=== PATIENT | female | born 1940 | race Caucasian/White ===

== ENCOUNTER 2022-07-26 22:05 | Inpatient (IN) | payer OTHER ==
[~2022-07-26] VITALS: Ht 157.5 cm; Wt 54.4 kg
[2022-07-26 22:35] VITALS: BP_SYST 163
--- NOTE | 2022-07-26 22:40 | NUR ---
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 REPORTING RIGHT SIDED RIB PAIN AND THIGH PAIN. PT 02 SAT 86% ON RA, PUT ON 2L NC O2 SAT NOW 92%. MD MADE AWARE. PT A&O X4, SPEAKING IN FULL SENTENCES. SAFETY PRECAUTIONS IN PLACE AND CONNECTED TO MONITOR. MD AT BEDSIDE FOR MSE.
[2022-07-26] MEDS ORDERED: KETOROLAC TROMETHAMINE 60 MG/2 ML VIAL IM ONE (22:45)
[2022-07-26] MEDS ORDERED: MORPHINE 4 MG INJ. 4 MG/ML VIAL IM ONE (23:15)
[2022-07-27 00:57] LABS: BASOPHILS % (AUTO) 0.3 % (0.0-2.0); EOSINOPHILS % (AUTO) 0.2 % (0.0-4.0); HEMATOCRIT 39.7 % (36-48); HEMOGLOBIN 13.3 g/dL (12.0-16.0); LYMPHOCYTES # (AUTO) 0.8 K/uL (1.0-5.5); LYMPHOCYTES % (AUTO) 7.1 % (20.5-51.5); MEAN CORPUSCULAR HEMOGLOBIN 29 pg (27-31); MEAN CORPUSCULAR HGB CONC 33 % (32-36); MEAN CORPUSCULAR VOLUME 88 fL (79.0-98.0); MONOCYTES # (AUTO) 0.5 K/uL (0.0-1.0); MONOCYTES % (AUTO) 4.3 % (1.7-9.3); NEUTROPHILS % (AUTO) 88.1 % (40.0-70.0); PLATELET COUNT (AUTO) 197 K/uL (130-430); RED BLOOD CELL COUNT(AUTO) 4.52 MIL/uL (4.2-6.2); RED CELL DISTRIBUTION WIDTH 13.4 % (9.0-15.0); WHITE BLOOD COUNT (AUTO) 11.4 K/uL (4.8-10.8)
--- NOTE | 2022-07-27 01:05 | NUR ---
COVID SWAB GIVEN TO LAB
[2022-07-27 01:07] LABS: ANION GAP 7 (5-15); CALCIUM 9.1 mg/dL (8.4-11.0); CHLORIDE 102 mmol/L (98-107); CREATININE 0.71 mg/dL (0.55-1.30); GLUCOSE 137 mg/dL (70-99); UREA NITROGEN, BLOOD 24 mg/dL (8-21)
[2022-07-27 01:16] LABS: ALANINE AMINOTRANSFERASE 18 U/L (12-78); ALBUMIN 3.9 g/dL (3.4-4.8); ASPARTATE AMINOTRANSFERASE 21 U/L (10-37); TOTAL BILIRUBIN 0.4 mg/dL (0.0-1.0)
--- NOTE | 2022-07-27 01:42 | NUR ---
PT RESTING IN BED AWAKE. AT BEDSIDE. PT REPORT BEING COMFORTABLE AT THE MOMENT. VSS. SAFETY PRECAUTIONS IN PLACE AND CONNECTED TO MONITOR.
--- NOTE | 2022-07-27 03:30 | NUR ---
PT RESTING IN BED, AWAKE WITH AT BEDSIDE. VSS. SAFETY PRECAUTIONS IN PLACE AND CONNECTED TO MONITOR.
--- NOTE | 2022-07-27 05:09 | NUR ---
PT RESTING IN BED, EYES CLOSED. EVEN AND UNLABORED RESP NOTED, NAD. VSS AND CONNECTED TO MONITOR. SAFETY PRECAUTIONS IN PLACE.
--- NOTE | 2022-07-27 06:35 | NUR ---
PT EDUCATED ON NEED FOR IV UPON ADMISSION. PT REFUSED IV ACCESS.
--- NOTE | 2022-07-27 07:22 | NUR ---
Admit bed requested Patient will be admitted to care of Dr. MCLEOD. Admitted to MED SURG unit. Diagnosis FEMUR FRACTURE Inpatient (Yes or No) YES Observation (Yes or No) NO Orientation concerns or request close to nursing station (Yes or No) NO Covid Status NEGATIVE On vent or bipap NO Isolation requirements NO Needs a sitter NO From Home (Yes or if No enter name of facility) YES Requires Dialysis (Yes or No) NO Med Rec Completed (Yes of No) PENDING
--- NOTE | 2022-07-27 07:23 | NUR ---
REPORT GIVEN TO MARIAH RN TO ASSUME CARE.
[2022-07-27] MEDS ORDERED: AMLO2.5T50 PO (07:54)
[2022-07-27] MEDS ORDERED: METO50TA7 PO (07:54)
--- NOTE | 2022-07-27 09:13 | NUR ---
Medication reconciliation completed with information provided by PHARMACY. Any prior medication reconciliation on file was reviewed and corrected.
[2022-07-27] MEDS ORDERED: ONDANSETRON HCL 4 MG/2 ML VIAL IVP PRN (11:45)
[2022-07-27] MEDS ORDERED: HYDROcodone/ACETAMIN 10-325 MG TAB PO PRN (11:45)
[2022-07-27] MEDS ORDERED: HYDROcodone/ACETAMIN 5-325 MG TAB (NORCO/ VICODIN) PO PRN (11:45)
[2022-07-27] MEDS ORDERED: MORPHINE 2 MG/ML INJ. SYRINGE IVP PRN (11:45)
[2022-07-27] MEDS ORDERED: NALOXONE HCL 0.4 MG/ML AMP (NARCAN) IVP PRN ×3 (11:45)
[2022-07-27] MEDS ORDERED: LORazepam 2 MG/ML VIAL IVP PRN (11:45)
[2022-07-27] MEDS ORDERED: amLODIPine BESYLATE 5 MG TABLET PO ONE ×2 (12:00)
[2022-07-27] MEDS ORDERED: METOPROLOL SUCCINATE 50 MG TAB.SR.24H (TOPROL XL) PO ONE (12:00)
[2022-07-27] MEDS: METOPROLOL SUCCINATE 50 MG TAB.SR.24H (TOPROL XL) PO SCH (12:50)
--- NOTE | 2022-07-27 14:35 | NUR ---
PUREWICK IN PLACE WILL CONTINUE TO MONBITOR.
--- NOTE | 2022-07-27 18:05 | NUR ---
PT CAME TO MST UNIT FROM ER. REPORT RECEIVED FROM KISHA LEMUS. VITAL SIGN: 140/75, 103,96% AT 2L O2 VIA NC, 98.5. DENIES ANY PAIN OR DISCOMFORT. IV LINE REMAIN INTACT. FAMILY MEMBERS ARE AT BEDSIDE. WILL CONT TO MONITOR
--- NOTE | 2022-07-27 19:15 | NUR ---
CLOSING NOTE PT IN BED, RESTING. NO S/S ACUTE DISTRESS OR PAIN NOTED. NON-LABORED BREATHING WITH O2 2L VIA NC. BED IS LOCKED AND AT LOW POSITION. SAFETY PRECAUTION IN PLACED. ENDORSED CONSENT FOR PRE SURGERY AND CARE TO AUDIT DIRECTOR.
--- NOTE | 2022-07-27 19:45 | NUR ---
Patient will be admitted to care of DR HALEY. Admitted to MED SURGE unit. Will go to room 132A. Belongings list completed. Complete and up to date summary report printed. SBAR report to be given at bedside with opportunity for questions.
[2022-07-27 20:00] VITALS: BP_SYST 135
[2022-07-27] MEDS: NORMAL SALINE 5 ML DISP.SYRIN IVF SCH (22:00)
[2022-07-27] MEDS: ACETAMINOPHEN 325 MG TABLET PO PRN (22:16)
[2022-07-27 22:33] VITALS: BP_SYST 135
[2022-07-28] VITALS: BP_SYST 130
[2022-07-28] MEDS: D5/0.45 NS 1,000 ML IV SCH ×2 (05:02→14:45)
[2022-07-28] MEDS: NORMAL SALINE 5 ML DISP.SYRIN IVF SCH ×5 (05:03→14:00)
[2022-07-28 06:58] LABS: BASOPHILS % (AUTO) 0.4 % (0.0-2.0); EOSINOPHILS # (AUTO) 0.3 K/uL (0.0-0.4); EOSINOPHILS % (AUTO) 3.9 % (0.0-4.0); HEMOGLOBIN 13.7 g/dL (12.0-16.0); LYMPHOCYTES # (AUTO) 0.8 K/uL (1.0-5.5); LYMPHOCYTES % (AUTO) 8.9 % (20.5-51.5); MEAN CORPUSCULAR HEMOGLOBIN 30 pg (27-31); MEAN CORPUSCULAR HGB CONC 34 % (32-36); MEAN CORPUSCULAR VOLUME 88 fL (79.0-98.0); MONOCYTES # (AUTO) 0.7 K/uL (0.0-1.0); MONOCYTES % (AUTO) 7.6 % (1.7-9.3); NEUTROPHILS # (AUTO) 7.1 K/uL (1.8-7.7); NEUTROPHILS % (AUTO) 79.2 % (40.0-70.0); PLATELET COUNT (AUTO) 200 K/uL (130-430); RED BLOOD CELL COUNT(AUTO) 4.54 MIL/uL (4.2-6.2); RED CELL DISTRIBUTION WIDTH 13.2 % (9.0-15.0)
--- NOTE | 2022-07-28 07:20 | NUR ---
CONSULTATION: REASON FOR CONSULT: CARDIAC CLEARANCE CONSULTING PHYSICIAN: Tresa MCLEOD ORDERED BY: Philip MCLEOD SPOKE WITH GINO FROM ANSWERING SERVICE [phone]
[2022-07-28 07:23] LABS: ALANINE AMINOTRANSFERASE 16 U/L (12-78); ALBUMIN 3.7 g/dL (3.4-4.8); ANION GAP 9 (5-15); ASPARTATE AMINOTRANSFERASE 16 U/L (10-37); CALCIUM 8.7 mg/dL (8.4-11.0); CHLORIDE 101 mmol/L (98-107); GLUCOSE 112 mg/dL (70-99); PHOSPHORUS 3.7 mg/dL (2.7-4.5); UREA NITROGEN, BLOOD 20 mg/dL (8-21)
--- NOTE | 2022-07-28 07:30 | NUR ---
Patient resting in bed, unlabored breathing on 2L NC. Reporting mild pain at site of fracture, given Tylenol PRN. Patient has been NPO since midnight in preparation for procedure. at bedside. MRSA swab collected and sent to lab. Safety precautions in place.
--- NOTE | 2022-07-28 07:44 | NUR ---
Report received from night worker RN for continuity of care. Patient stable condition.
[2022-07-28 07:45] VITALS: BP_SYST 145
[2022-07-28] MEDS ORDERED: amLODIPine BESYLATE 5 MG TABLET PO ONE (09:00)
[2022-07-28 10:28] LABS: BILIRUBIN,URINE NEGATIVE (NEGATIVE); CLARITY/URINE CLEAR (CLEAR); COLOR,URINE YELLOW (YELLOW); GLUCOSE,URINE NEGATIVE (NEGATIVE); KETONES,URINE TRACE (NEGATIVE); LEUKOCYTE ESTERASE ,URINE NEGATIVE (NEGATIVE); NITRITE, URINE NEGATIVE (NEGATIVE); PROTEIN URINE 1+ (NEGATIVE); UROBILINOGEN,URINE 0.2 (0.2-1.0)
[2022-07-28] MEDS ORDERED: ONDANSETRON HCL 4 MG/2 ML VIAL IVP ONE (10:30)
[2022-07-28] MEDS ORDERED: fentaNYL CITRATE/PF 100 MCG/2 ML AMP IVP ONE (10:30)
[2022-07-28] MEDS ORDERED: NS IRRIG SOLN 1000 ML IR ONE (10:30)
[2022-07-28] MEDS ORDERED: ROCURONIUM BROMIDE 10 MG/ML (ZEMURON) IV ONE (10:30)
[2022-07-28] MEDS ORDERED: LR 1,000 ML IV.SOLN IV ONE (10:30)
[2022-07-28] MEDS ORDERED: TRANEXAMIC ACID 1,000 MG/10 ML VIAL IV ONE (10:30)
[2022-07-28] MEDS ORDERED: CEFAZOLIN 2 GM IVPB PREMIX 50 ML IV ONE (10:30)
[2022-07-28] MEDS ORDERED: KETOROLAC TROMETHAMINE 30 MG VIAL IVP ONE (10:30)
[2022-07-28] MEDS ORDERED: NS 100 ML BAG IV ONE (10:30)
[2022-07-28] MEDS ORDERED: DEXAMETHASONE SOD PHOSPHATE 4 MG/ML VIAL IVP ONE (10:30)
[2022-07-28] MEDS ORDERED: DESFLURANE 15 MIN GAS INH ONE (10:30)
[2022-07-28] MEDS ORDERED: SUGAMMADEX SODIUM 200 MG/2 ML VIAL IV ONE (10:30)
[2022-07-28] MEDS ORDERED: MIDAZOLAM HCL 5 MG/5 ML VIAL IVP ONE (10:30)
[2022-07-28] MEDS ORDERED: NS 1000 ML IV.SOLN IV ONE (10:30)
[2022-07-28] MEDS ORDERED: PROPOFOL 200MG/ 20ML VIAL (DIPRIVAN) IV ONE (10:30)
[2022-07-28 10:58] LABS: BLOOD, URINE TRACE (NEGATIVE)
[2022-07-28 11:12] LABS: BACTERIA,URINE RARE /HPF (None Seen); WBC,URINE 0-3 /HPF (0-3)
[2022-07-28] MEDS ORDERED: ceFAZolin SODIUM 2 GM in D5W 50 ML IV SCH (11:15)
[2022-07-28] MEDS ORDERED: ACETAMINOPHEN I.V. 1000 MG 100 ML IV ONE (11:29)
[2022-07-28] MEDS ORDERED: LABETALOL 100 MG/ 20ML VIAL IVP PRN (11:30)
[2022-07-28] MEDS ORDERED: MEPERIDINE HCL/PF 25 MG/ML DISP.SYRIN IVP PRN (11:30)
[2022-07-28] MEDS ORDERED: HYDROmorphone 1 MG/ML INJ. CARTRIDGE IVP PRN ×2 (11:30)
[2022-07-28] MEDS ORDERED: hydrALAZINE HCL 20 MG/ML VIAL IVP PRN (11:30)
[2022-07-28] MEDS ORDERED: LR 1,000 ML IV SCH (11:30)
[2022-07-28] MEDS ORDERED: METOCLOPRAMIDE HCL 10 MG/2 ML VIAL IVP PRN (11:30)
--- NOTE | 2022-07-28 13:39 | NUR ---
Patient in procedure.
--- NOTE | 2022-07-28 14:07 | NUR ---
pATIENT BACK FROM OR PROCEDURE. RESTING. VITALS STABLE. No distress noted.
[2022-07-28 14:08] VITALS: BP_SYST 142
--- NOTE | 2022-07-28 14:11 | NUR ---
Right hip dressing noted clean, dry, intact.
[2022-07-28] MEDS: ACETAMINOPHEN 325 MG TABLET PO PRN (16:51)
[2022-07-28 18:20] VITALS: BP_SYST 116
--- NOTE | 2022-07-28 19:40 | NUR ---
Report given to slot shift manager RN for continuity of care. Patient stable at the moment.
[2022-07-28 20:00] VITALS: BP_SYST 124
--- NOTE | 2022-07-28 20:15 | NUR ---
RECEIVED PT LYING IN BED, NO DISTRESS NOTED, DENIES PAIN. USING IS 500ML. DRSG TO RT HIP CDI. NEUROVASCULAR CHECK TO RLE INTACT. ABD PILLOW ON, RUBEN ON Addendum: 07/29/22 at 0554 by Araceli RegistryKISHA RN RLE WITH +WARMTH, +MOBILITY, +SENSATION, +PULSE, AND BRISK CAP REFILL. ICE PACK APPLIED.
[2022-07-29 00:26] VITALS: BP_SYST 113
[2022-07-29] MEDS: D5/0.45 NS 1,000 ML IV SCH (02:08)
[2022-07-29] MEDS ORDERED: CEFAZOLIN 2 GM IVPB PREMIX 50 ML IV ONE (02:27)
[2022-07-29 06:57] LABS: BASOPHILS # (AUTO) 0.1 K/uL (0.0-0.2); BASOPHILS % (AUTO) 0.4 % (0.0-2.0); HEMATOCRIT 37.1 % (36-48); HEMOGLOBIN 12.6 g/dL (12.0-16.0); LYMPHOCYTES # (AUTO) 0.3 K/uL (1.0-5.5); LYMPHOCYTES % (AUTO) 2.6 % (20.5-51.5); MEAN CORPUSCULAR HEMOGLOBIN 30 pg (27-31); MEAN CORPUSCULAR HGB CONC 34 % (32-36); MEAN CORPUSCULAR VOLUME 88 fL (79.0-98.0); MONOCYTES # (AUTO) 0.5 K/uL (0.0-1.0); MONOCYTES % (AUTO) 3.7 % (1.7-9.3); NEUTROPHILS # (AUTO) 12.4 K/uL (1.8-7.7); NEUTROPHILS % (AUTO) 93.3 % (40.0-70.0); PLATELET COUNT (AUTO) 196 K/uL (130-430); RED BLOOD CELL COUNT(AUTO) 4.23 MIL/uL (4.2-6.2); RED CELL DISTRIBUTION WIDTH 12.8 % (9.0-15.0); WHITE BLOOD COUNT (AUTO) 13.3 K/uL (4.8-10.8)
[2022-07-29 07:11] LABS: ANION GAP 8 (5-15); CALCIUM 9.1 mg/dL (8.4-11.0); CHLORIDE 103 mmol/L (98-107); CREATININE 0.76 mg/dL (0.55-1.30); GLUCOSE 176 mg/dL (70-99); UREA NITROGEN, BLOOD 17 mg/dL (8-21)
[2022-07-29 08:00] VITALS: BP_SYST 125
[2022-07-29] MEDS: METOPROLOL SUCCINATE 50 MG TAB.SR.24H (TOPROL XL) PO SCH (09:24)
[2022-07-29] MEDS: ASPIRIN 81 MG TAB.CHEW PO SCH ×2 (09:24→21:17)
--- NOTE | 2022-07-29 09:24 | NUR ---
PAIN PT NOW SITTING IN THE CHAIR AFTER AMBULATING, OFFERED HER PAIN PILL, PT REFUSED TO TAKE PAIN MEDS, DENIES PAIN, CONTINUE TO MONITOR.
--- NOTE | 2022-07-29 10:15 | NUR ---
NURSING SEEN PT TALKING TO HER WHILE SITTING, NO COMPLAINTS OF ANY PAIN.
--- NOTE | 2022-07-29 11:05 | NUR ---
EVALUATION COMPLETED. PATIENT WILL NEED: FWW, COMMODE, HOME HEALTH PT VS. SNF.
[2022-07-29 11:45] VITALS: BP_SYST 116
[2022-07-29 17:08] VITALS: BP_SYST 118
[2022-07-29 20:00] VITALS: BP_SYST 138
[2022-07-29] MEDS ORDERED: amLODIPine BESYLATE 5 MG TABLET PO ONE (20:00)
--- NOTE | 2022-07-29 20:30 | NUR ---
RECEIVED PT LYING IN BED, NO DISTRESS NOTED, DENIES PAIN. IV TO LT AC SITE CDI. O2 SAT 97% ON 2L O2. ENCOURAGED DEEP BREATHING. ABD PILLOW ON. +WARMTH, +SENSATION, +MOBILITY, BRISK CAP REFILL, AND PALPABLE PULSE. Addendum: 07/29/22 at 2238 by [facility], KISHA BEARD PT STATES SHE IS UNABLE TO USE INCENTIVE SPIROMETER DUE TO FLANK PAIN WHEN DOING IT. MEDICATED PT WITH TYLENOL TO MINIMIZE FLANK PAIN WHEN USING THE INCENTIVE SPIROMETER. O2 ON RA IS 88%, APPLIED O2 2 L O2 SAT 95%.
[2022-07-29] MEDS: DOCUSATE SODIUM 100 MG CAPSULE PO SCH (21:20)
[2022-07-29] MEDS: ACETAMINOPHEN 325 MG TABLET PO PRN (21:47)
[2022-07-29] MEDS: NORMAL SALINE 5 ML DISP.SYRIN IVF SCH (22:00)
[2022-07-30] VITALS: BP_SYST 142
[2022-07-30 06:20] LABS: BASOPHILS % (AUTO) 0.1 % (0.0-2.0); EOSINOPHILS % (AUTO) 0.2 % (0.0-4.0); HEMATOCRIT 35.1 % (36-48); HEMOGLOBIN 11.8 g/dL (12.0-16.0); LYMPHOCYTES # (AUTO) 0.9 K/uL (1.0-5.5); MEAN CORPUSCULAR HEMOGLOBIN 30 pg (27-31); MEAN CORPUSCULAR HGB CONC 34 % (32-36); MEAN CORPUSCULAR VOLUME 88 fL (79.0-98.0); MONOCYTES # (AUTO) 1.3 K/uL (0.0-1.0); MONOCYTES % (AUTO) 8.6 % (1.7-9.3); NEUTROPHILS # (AUTO) 12.8 K/uL (1.8-7.7); NEUTROPHILS % (AUTO) 85.1 % (40.0-70.0); PLATELET COUNT (AUTO) 218 K/uL (130-430); RED BLOOD CELL COUNT(AUTO) 3.98 MIL/uL (4.2-6.2); RED CELL DISTRIBUTION WIDTH 13.4 % (9.0-15.0); WHITE BLOOD COUNT (AUTO) 15.1 K/uL (4.8-10.8)
[2022-07-30 06:58] LABS: ANION GAP 8 (5-15); CALCIUM 8.5 mg/dL (8.4-11.0); CHLORIDE 106 mmol/L (98-107); CREATININE 0.79 mg/dL (0.55-1.30); GLUCOSE 118 mg/dL (70-99)
[2022-07-30 07:05] LABS: UREA NITROGEN, BLOOD 25 mg/dL (8-21)
[2022-07-30 08:53] VITALS: BP_SYST 120
[2022-07-30] MEDS: ACETAMINOPHEN 325 MG TABLET PO PRN ×2 (08:58→22:17)
[2022-07-30] MEDS: POLYETHYLENE GLYCOL 3350, 17 GM/ POWD.PACK PO SCH ×2 (09:00→12:00)
[2022-07-30] MEDS: DOCUSATE SODIUM 100 MG CAPSULE PO SCH ×2 (09:00→21:19)
[2022-07-30] MEDS: ASPIRIN 81 MG TAB.CHEW PO SCH ×2 (09:00→21:19)
[2022-07-30] MEDS: amLODIPine BESYLATE 5 MG TABLET PO SCH (09:00)
[2022-07-30] MEDS: METOPROLOL SUCCINATE 50 MG TAB.SR.24H (TOPROL XL) PO SCH (09:00)
--- NOTE | 2022-07-30 10:28 | NUR ---
CONSULTATION PAGED/CALLED Reason for Consultation: [] LEUKOCYTOSIS Person Who was Notified: [] LLOYD Consulting Physician: [] DR NO Dopster Specialty: [] ID Ordering Physician: [] DR MCLEOD
--- NOTE | 2022-07-30 10:30 | NUR ---
CONSULTATION PAGED/CALLED Reason for Consultation: [] ACUTE RESP FAIL Person Who was Notified: [] JAYDEN Consulting Physician: [] DR ALLISON Passenger Car Conductor Specialty: [] PULMO Ordering Physician: [] DR Philip MCLEOD
[2022-07-30] MEDS: IPRATROPIUM BROM 0.5 MG/2.5 ML VIAL.NEB (ATROVENT) INH SCH ×4 (11:16→23:39)
[2022-07-30] MEDS: ALBUTEROL SULFATE 0.083% 2.5 MG/3 ML VIAL.NEB INH SCH ×4 (11:17→23:38)
[2022-07-30 11:32] VITALS: BP_SYST 111
[2022-07-30] MEDS ORDERED: cefTRIAXone 1 GM in D5W 50 ML IV SCH (12:00)
--- NOTE | 2022-07-30 14:07 | NUR ---
Discharge Planning: DCP faxed pt referral to [facility] [phone], Tavon Kothari [phone], Abiel Busch [phone], Gualberto Mercado [phone], Haroldo Beebe [phone] DC t follow up. Addendum: 07/30/22 at 1643 by Alexandra Forde DP [facility] [phone] can deliver FWW to bed if patient is going home. FWW on hold please let them know. Juan Connors [phone]-accepting pt, Tavon Kothari [phone]-accepting pt 106b, Abiel Busch [phone]-accepting-pt 40B, Gualberto Mercado [phone]-accepting pt, Haroldo Beebe [phone]-accepting pt
[2022-07-30 16:34] VITALS: BP_SYST 116
--- NOTE | 2022-07-30 17:54 | NUR ---
sandy callahan from [facility] for fww delivery on d/c [phone]
[2022-07-30] MEDS ORDERED: ENOXAPARIN SODIUM 40 MG/0.4 ML SYRINGE SUBCUT SCH (18:00)
--- NOTE | 2022-07-30 19:30 | NUR ---
Pt. in bed, denies pain. Aaox4, visiting with her . Dressing to right hip in place, good cms to right foot. NO resp. distress noted. Purewick put into place with urine noted. Call light in reach.
[2022-07-30 22:45] VITALS: BP_SYST 132
[2022-07-31] VITALS (7 sets, daily range): BP systolic 121–137
[2022-07-31] MEDS: ALBUTEROL SULFATE 0.083% 2.5 MG/3 ML VIAL.NEB INH SCH ×4 (04:45→15:00)
[2022-07-31] MEDS: IPRATROPIUM BROM 0.5 MG/2.5 ML VIAL.NEB (ATROVENT) INH SCH ×4 (04:45→15:00)
--- NOTE | 2022-07-31 06:30 | NUR ---
Pt. needs met this shift, vss, pt. turned prn, purewick in place and working. Call light in reach, good cms to right foot, dressing to R hip d/i.. No resp. distress, pox wnl. [address]
[2022-07-31 06:55] LABS: ANION GAP 8 (5-15); C-REACTIVE PROTEIN QUANT 5.1 mg/dL (0-0.5); CALCIUM 8.9 mg/dL (8.4-11.0); CHLORIDE 105 mmol/L (98-107); CREATININE 0.54 mg/dL (0.55-1.30); GLUCOSE 105 mg/dL (70-99); UREA NITROGEN, BLOOD 22 mg/dL (8-21)
[2022-07-31 06:57] LABS: BASOPHILS % (AUTO) 0.3 % (0.0-2.0); EOSINOPHILS # (AUTO) 0.3 K/uL (0.0-0.4); EOSINOPHILS % (AUTO) 3.3 % (0.0-4.0); HEMATOCRIT 35.2 % (36-48); HEMOGLOBIN 11.9 g/dL (12.0-16.0); LYMPHOCYTES # (AUTO) 1.3 K/uL (1.0-5.5); LYMPHOCYTES % (AUTO) 13.9 % (20.5-51.5); MEAN CORPUSCULAR HEMOGLOBIN 30 pg (27-31); MEAN CORPUSCULAR HGB CONC 34 % (32-36); MEAN CORPUSCULAR VOLUME 88 fL (79.0-98.0); MONOCYTES % (AUTO) 11.2 % (1.7-9.3); NEUTROPHILS # (AUTO) 6.5 K/uL (1.8-7.7); NEUTROPHILS % (AUTO) 71.3 % (40.0-70.0); PLATELET COUNT (AUTO) 222 K/uL (130-430); RED BLOOD CELL COUNT(AUTO) 4.02 MIL/uL (4.2-6.2); RED CELL DISTRIBUTION WIDTH 13.6 % (9.0-15.0); WHITE BLOOD COUNT (AUTO) 9.1 K/uL (4.8-10.8)
[2022-07-31 08:04] LABS: ERYTHROCYTE SEDIMENTATION RATE 60 MM/HR (0-20)
[2022-07-31] MEDS: METOPROLOL SUCCINATE 50 MG TAB.SR.24H (TOPROL XL) PO SCH (09:00)
[2022-07-31] MEDS: DOCUSATE SODIUM 100 MG CAPSULE PO SCH (09:00)
[2022-07-31] MEDS: ASPIRIN 81 MG TAB.CHEW PO SCH (09:00)
[2022-07-31] MEDS: amLODIPine BESYLATE 5 MG TABLET PO SCH (09:00)
[2022-07-31] MEDS ORDERED: DOCU-144 PO (11:24)
[2022-07-31] MEDS ORDERED: ASA81 PO (11:24)
[2022-07-31] MEDS ORDERED: LOVI40 SUBCUT (11:24)
[2022-07-31] MEDS ORDERED: HYDR-3919 PO (11:24)
[2022-07-31] MEDS ORDERED: ACET325T PO (11:24)
[2022-07-31] MEDS ORDERED: POLY17PO4 PO (11:24)
[2022-07-31] MEDS ORDERED: HYDR-3927 PO (11:24)
--- NOTE | 2022-07-31 13:42 | NUR ---
Patient accepted at [facility] room 111. Number for report [phone]. Ambulance transport by [facility] at 3:30 PM . Patient needs a rapid covid test before transport-RN notified. Family and patient agreed to transfer. Discharge disposition [id number]
--- NOTE | 2022-07-31 14:10 | NUR ---
Report given to Rohit Persaud at [facility]
--- NOTE | 2022-07-31 16:40 | NUR ---
Discharge Transfer transfer packet given to the ambulance, patient AAOx4 no acute distress noted. Patient was indicated regarding his disease process and risks factor. Ptient expressed understanding of the teaching. Family at bedside was also educated.
== END 2022-07-31 17:15 | DRG 521 ==
LOC: SED 22:05 → SMU 07-27 00:35
PROVIDERS: ADMIT Preventive Medicine Preventive Medicine/Occupational Environmental Medicine; ATTEND Preventive Medicine Preventive Medicine/Occupational Environmental Medicine
PROC: 0SRR0JZ Replacement of Right Hip Joint, Femoral Surface with Synthetic Substitute, Open Approach (ICD-10-PCS; principal; 2022-07-28 10:40)
DX: S72.011A Unspecified intracapsular fracture of right femur, initial encounter for closed fracture (principal); J96.00 Acute respiratory failure, unspecified whether with hypoxia or hypercapnia; W18.39XA Other fall on same level, initial encounter; D72.829 Elevated white blood cell count, unspecified; D64.9 Anemia, unspecified; I10 Essential (primary) hypertension; R73.9 Hyperglycemia, unspecified; R53.81 Other malaise; Z20.822 Contact with and (suspected) exposure to COVID-19; Y93.89 Activity, other specified; Y92.89 Other specified places as the place of occurrence of the external cause; Y99.8 Other external cause status
CPT/HCPCS: 36415; 71045; 71100; 72170-TC; 73502; 73552; 80048; 80053; 81000; 83735; 84100; 84484; 85025; 85651-TC; 85730-TC; 86140; 87040; 87081; 87086; 88305; 88311; 93005; 93306; 94640; 94760; 96372; 97116-GP; 97161-GP; 97530-GP; 99285; C1776; J0131; J0690; J0696; J1100; J1650; J1885; J2250; J2270; J2405; J2704; J3010; J3490; J7030; J7060; J7120; J7613